=== PATIENT | female | born 1960 | race Caucasian/White ===

== ENCOUNTER 2021-04-26 13:10 | Inpatient (IN) | payer OTHER ==
[~2021-04-26] VITALS: Ht 152.4 cm; Wt 83.9 kg
--- NOTE | ~2021-04-26 | EMS ---
[facility] [address] [place] [address] EMS Patient Care Report Name: ENRICO ROWLEY Room #: 170-6 ADM IN M.R.#: [id number] Admission: 04/26/21 Attend Phys: Mary Carmen Mina Discharge: Date of : 62 Report #: [id number] THIS REPORT FOR: //name// Report Transmitted: 04/26/2021 14:15 EMS Care Summary [facility] MED-ACT Incident [id number] @ 04/26/2021 12:32 [address]ident [address] [place] [address] Patient ENRICO ROWLEY Female, 60 Years 1960 Patient Address [address] [place] [address] Patient History Hypertension (HTN), Patient Allergies Sulfa,Levaquin, Patient Medications Hydrocodone, Lexapro, Ramipril, Cephalexin, Aspirin, Chief Complaint "She had an anaphylatic reaction" Disposition Transported No Lights/[place] Reason Allergic Reaction/Stings Transported To [facility] Narrative [id number] responded emergent to [facility] for a female reported to be having an allergic reaction, intubated and on an epi drip. [place] arrived on scene and was guided upstairs to a recovery room. Pt was laying [facility] [address] [place] [address] EMS Patient Care Report Name: ENRICO ROWLEY Room #: 170-6 ADM IN [facility].#: [id number] Admission: 04/26/21 Attend Phys: Mary Carmen Mina Discharge: Date of : 62 Report #: [id number] semi-linton position, awake and alert. Face was bright roper red, pt was on O2 via NC but not intubated. Pt was surrounded by several nurses and MD. MD states pt was given Fentanyl and Demerol prior to her surgery. MD states pt was then given an antibiotic. states at that time pt began to complain of chest heaviness, skin became very red and pt's ears, eyes and tongue began to swell. states pt was administered epi before being placed on an epi drip. Pt was also administered Benadryl and zofran prior to EMS arrival. states pt was never intubated. Pt states she is feeling better but she is visibly shaky. Pt denies chest pain or discomfort. Pt denies shortness of breath or difficulty swallowing. Pt ears are noted to be a little a swollen. The eye and tongue swell had subsided prior to EMS arrival. Pt is moved from bed to cot via 5 point seatbelt. Discussion was made between Cpt Fernandez and the MD about continuing the epi drip. Cpt Fernandez requested if the drip was to continue that a nurse ride to the hospital with the pt. MD agreed and a nurse was sent with the crew. Pt is stable during transport. Pt remains 98% on RA and is without complaint. Pt skin color is not as red as initial assessment. Pt to room, report given to RN and pt moved to bed via sheet without incident. Initial Vitals @12:52P: 98,SpO2: 97, @PTAP: 78,R: 14,BP: 136/70,Pain: 0/10,GCS: 15,SpO2: 100,Revised Trauma: 12, @13:04P: 86,R: 14,BP: 95/58,GCS: 15,SpO2: 98,Revised Trauma: 12, @12:51P: 92,R: 14,BP: 126/76,Pain: 0/10,GCS: 15,Temp: 98F,SpO2: 98,Revised Trauma: 12, Assessments @12:44MENTAL:Person Oriented,Time Oriented,Place Oriented,Event Oriented,SKIN:Other,HEENT:Head/Face: Swelling,LUNG SOUNDS:ABDOMEN:PELVIS//GI:EXTREMITIES:PULSE:NEURO: Impression Anaphylaxis Procedures @PTAEpinephrine 1:1 - 2 Milligrams (mg) - Intravenous (IV)@13:05Surgical Mask on PatientResponse: Unchanged@PTASaline Lock 10cc (20 ga) Site: Hand-RightResponse: Unchanged@PTAOxygen FlowRate: 4 Device: Nasal Cannula (NC) Response: Improved@12:44ALS AssessmentResponse: UnchangedSucceeded [address] [address] EMS Patient Care Report Name: ENRICO ROWLEY Room #: 170-6 ADM IN M.R.#: [id number] Admission: 04/26/21 Attend Phys: Mary Carmen Mina Discharge: Date of : 62 Report #: [id number] Timeline LNA,Epinephrine 1:1 - 2 Milligrams (mg) - Intravenous (IV), LNA,Saline Lock 10cc 20 ga Site: Hand-Right,Response: Unchanged LNA,Oxygen FlowRate: 4 Device: Nasal Cannula (NC) Response: Improved LNA,BP: 136/70 M,PULSE: 78,RR: 14 R,SPO2: 100 Ox,ETCO2: ,BG: ,PAIN: 0,GCS: 15, 12:31,Call Received 12:31,Psap Call 12:32,Dispatched 12:33,En Route 12:39,On Scene 12:42,At Patient 12:44,ALS Assessment,Response: UnchangedSucceeded, 12:51,BP: 126/76 M,PULSE: 92,RR: 14 R,SPO2: 98 Ox,ETCO2: ,BG: ,PAIN: 0,GCS: 15, 12:52,BP: / M,PULSE: 98,RR: R,SPO2: 97 Ox,ETCO2: ,BG: ,PAIN: ,GCS: , 12:57,Depart Scene 13:04,BP: 95/58 M,PULSE: 86,RR: 14 R,SPO2: 98 Ox,ETCO2: ,BG: ,PAIN: ,GCS: 15, 13:05,Surgical Mask on Patient,Response: Unchanged 13:06,At Destination 13:22,Call Closed Disclaimer v1.1 Copyright 2020 [employer] This EMS Care Summary contains data elements from the applicable legal record (which may be displayed differently). It is designed to provide pertinent information for the following purposes: continuity of care, clinical quality, and state data reporting. The complete legal record is available to ED staff and administrators of the receiving hospital in [employer] Patient Tracker. All data is provided "as is."
[2021-04-26 13:11] VITALS: BP 119/53
[2021-04-26 13:39] LABS: ABSOLUTE NEUTROPHILS 7.1 thou/uL (1.4-8.2); BASOPHILS 0.4 % (0.0-2.0); EOSINOPHILS 0.4 % (0.0-3.0); HEMATOCRIT 47.3 % (37.0-47.0); HEMOGLOBIN 16.1 gm/dL (12.0-15.0); LYMPHOCYTES 17.2 % (24.0-44.0); MCH 33.1 pg (26.0-34.0); MCHC 34.1 g/dL (28.0-37.0); MCV 97.2 fL (80.0-100.0); MONOCYTES 1.8 % (1.0-8.0); PLATELET COUNT 282 thou/uL (150-400); POLYS 80.2 % (36.0-66.0); RBC 4.86 mil/uL (4.20-5.00); WBC 8.9 thou/uL (4.0-11.0)
[2021-04-26 13:48] LABS: ANION GAP 14 mmol/L (7-16); BUN 10 mg/dL (7-18); CALCIUM 8.4 mg/dL (8.5-10.1); CHLORIDE 104 mmol/L (98-107); CO2 21 mmol/L (21-32); CREATININE 0.9 mg/dL (0.6-1.0); GLUCOSE 171 mg/dL (74-106); POTASSIUM 3.7 mmol/L (3.5-5.1); SODIUM 139 mmol/L (136-145)
[2021-04-26 13:59] LABS: ALBUMIN 3.4 g/dL (3.4-5.0); SGOT 24 U/L (15-37); SGPT 29 U/L (14-59); TOTAL BILIRUBIN 0.5 mg/dL (0.2-1.0); TOTAL PROTEIN 6.7 g/dL (6.4-8.2); TROPONIN-I <0.06 ng/mL (<0.06)
[2021-04-26 15:01] VITALS: BP 125/70
[2021-04-26 15:13] VITALS: BP 113/69
--- NOTE | 2021-04-26 15:54 | EKG ---
[place] [address] [facility] [place] [employer] [place] [address] ELECTROCARDIOGRAM REPORT Name: MITCHEL ROWLEYCA Moe Room #: 356-P ADM IN M.R.#: [id number] Admission: 04/26/21 Attend Phys: Mary Carmen Mina Discharge: Date of : 62 Report #: [id number] [facility] ED Test Date: 2021-04-26 Test Time: 13:33:44 Pat Name: ENRICO ROWLEY Department: Room: 356 Gender: F Applique Cutter: : 1960 Requested By: James Bolivar Order Number: [id number] MD: Larry aGlindo Measurements Intervals Woodman Rate: 80 P: 59 IA: 182 QRS: 21 QRSD: 110 T: 27 QT: 405 QTc: 468 Interpretive Statements Sinus rhythm Probable left atrial enlargement Low voltage, precordial leads Borderline T wave abnormalities No previous ECG available for comparison Electronically Signed On 04-26-2021 15:54:38 CDT by Larry Galindo [email or web address] <ELECTRONICALLY SIGNED> By: Larry Galindo MD, [facility] 04/26/21 1554 1333 1333 Larry Galindo MD, FACC /EPI
--- NOTE | 2021-04-26 17:41 | NUR ---
Pt arrived to floor from emergency room dept around 1530 in stable condition. Admission hx,assessment and care plan completed.Box lunch given and well tolerated.Dr Mcclendon here wanted pt have albuterol treatment q4h and prn. Dr Mina notified,order noted.Ivf initiated around 1720 but pt c/o painful iv site.It was stopped and iv team paged.Another rn on the floor will try to replace iv. Will continue to monitor.
[2021-04-26 20:53] VITALS: BP 116/68
[2021-04-27 00:39] VITALS: BP 99/64
--- NOTE | 2021-04-27 04:05 | NUR ---
refuses to allow iv fluids into her iv site. stated that it is sensitive and is uncomfortable with iv fluids infusing. the iv site flushes without signs symptoms of infiltration. no redness to site. she does allow the iv bolus medication (solumedrol) to be administered into the iv site (Right ac). taking po fluids without choking or wheezing. denies throat tightness or soreness. no discharge concerns voiced.
[2021-04-27 04:17] VITALS: BP 121/72
[2021-04-27 08:03] VITALS: BP 138/81
[2021-04-27] MEDS ORDERED: BENADRYL ALLERG25 MG PO (08:56)
[2021-04-27] MEDS ORDERED: EPIPEN 2-P0.3 MG/0.3 IM (09:06)
[2021-04-27] MEDS ORDERED: FREESTYLE LIBR1 EAC2 MISCELL (09:06)
[2021-04-27 09:22] VITALS: BP 138/81
--- NOTE | 2021-04-27 10:22 | NUR ---
d/c instruction given to pt, new med info. p denies any questions on need. is here to get pt. iv/ tele d/c. taken down via wheelchair.
== END 2021-04-27 10:34 | disposition home or self-care (01) | DRG 916 ==
LOC: ER 13:10 → EROBS 14:26 → 3W 15:40
PROVIDERS: Emergency Medicine; ADMIT Hospitalist; ATTEND Hospitalist
DX: T88.6XXA Anaphylactic reaction due to adverse effect of correct drug or medicament properly administered, initial encounter (principal); M17.10 Unilateral primary osteoarthritis, unspecified knee; E66.9 Obesity, unspecified; Z88.8 Allergy status to other drugs, medicaments and biological substances; T36.1X5A Adverse effect of cephalosporins and other beta-lactam antibiotics, initial encounter; Z68.36 Body mass index [BMI] 36.0-36.9, adult; Z88.2 Allergy status to sulfonamides; Z88.1 Allergy status to other antibiotic agents; Z91.040 Latex allergy status; Y83.8 Other surgical procedures as the cause of abnormal reaction of the patient, or of later complication, without mention of misadventure at the time of the procedure; Y82.8 Other medical devices associated with adverse incidents
CPT/HCPCS: 10879